=== PATIENT | male | born 1945 | race Caucasian/White ===

== ENCOUNTER 2021-03-05 | Outpatient (REF) | payer MEDICARE, SELFPAY ==
[2021-03-09 14:12] LABS: OBS1 POSITIVE (NEGATIVE); OBS2 NEGATIVE (NEGATIVE); OBS3 NEGATIVE (NEGATIVE)
[2021-03-09 14:13] LABS: OBS Int Ctl Valid YES
== END 2021-03-05 00:01 | disposition home or self-care (01) ==
LOC: HO.HSH
PROVIDERS: Visit Provider Nurse Practitioner
DX: R10.9 Unspecified abdominal pain (principal); R79.89 Other specified abnormal findings of blood chemistry; D53.9 Nutritional anemia, unspecified
CPT/HCPCS: 82270

== ENCOUNTER 2021-03-09 13:09 | Outpatient (REF) | payer MEDICARE, BC, SELFPAY | END 2021-03-09 13:10 | disposition home or self-care (01) | LOC: HO.LNP 13:09 | PROVIDERS: Visit Provider Nurse Practitioner | DX: Z13.89 Encounter for screening for other disorder (principal) ==